=== PATIENT | female | born 1990 | race Caucasian/White ===

== ENCOUNTER 2025-02-21 20:49 | Emergency (ER) | payer OTHER ==
[2025-02-21 21:04] VITALS: TEMP 97.9
--- NOTE | 2025-02-21 21:48 | ED ---
General Adult HPI - General Chief complaint: Abdominal Pain Stated complaint: Abd pain Time Seen by Provider: 02/21/25 21:17 Source: patient Mode of arrival: ambulatory Limitations: no limitations - History of Present Illness Initial comments: Patient is previously healthy 35-year-old female presenting today for abdominal pain. The patient states that while she was trying have a bowel movement earlier she noticed an area of swelling and sharp pain in the center of her abdomen. She states she did have hard stools during this bowel movement. Denies black or bloody stools. This started about 3 hours prior to arrival. Pain is currently described as mild. She is drinking soda and eating chips. She denies nausea, vomiting, fevers or chills. Denies vaginal discharge or vaginal bleeding. States she cannot be . Does endorse dysuria. States she has had she has noticed this lump in her stomach before however it has never been painful. - Related Data Allergies Allergy/AdvReac Type Severity Reaction Status Date / Time No Known Allergies Allergy Verified 02/21/25 21:03 Review of Systems ROS Statement: Those systems with pertinent positive or pertinent negative responses have been documented in the HPI. ROS Other: All systems not noted in ROS Statement are negative. Past Medical History Past Medical History: No Reported History History of Any Multi-Drug Resistant Organisms: None Reported Additional Past Surgical History / Comment(s): Throat sugery- removal of tumor. Past Psychological History: PTSD Smoking Status: Current every day smoker, Vaper Past Alcohol Use History: None Reported Past Drug Use History: Cocaine, Heroin, Marijuana, Opiates General Exam - General Exam Comments Initial Comments: PE: CONSTITUTIONAL: [no apparent distress, well appearing] SKIN: [warm, dry, no jaundice, hives or petechiae, no areas of erythema or rash over area of discomfort] EYES:[ pupils are equally round, extraocular movements intact without nystagmus, clear conjunctiva, non-icteric sclera] HENT: [normocephalic, atraumatic, moist mucus membranes, oropharynx clear without exudates] NECK: , [Full range of motion, normal appearance] PULMONARY: [clear to auscultation without wheezes, rhonchi, or rales, normal excursion, no accessory muscle use and no stridor] CARDIOVASCULAR:[ regular rate, rhythm, normal S1 and S2. No appreciated murmurs, rubs or gallops. Strong radial pulses with intact distal perfusion. No lower extremity edema] GASTROINTESTINAL: [soft, active bowel sounds throughout, non-tender, non- distended, no palpable masses, no rebound or guarding. No hepatosplenomegaly no palpable hernias] GENITOURINARY: MUSCULOSKELETAL: [Extremities have no gross deformity, no edema, redness, or swelling. No calf swelling ] NEUROLOGIC: [_a/o x 3, GCS 15, normal mentation and speech. Moves all extremities x 4 without motor or sensory deficit] PSYCHIATRIC:[ _normal mood and affect, thought process is clear and linear] Limitations: no limitations Course Vital Signs 02/21/25 21:00 Temperature 97.9 F Pulse Rate 70 Respiratory 15 Rate Blood Pressure 130/81 O2 Sat by Pulse 98 Oximetry Medical Decision Making - Medical Decision Making Was pt. sent in by a medical professional or institution (, PA, CLIENT CARE CONSULTANT, urgent care, hospital, or fpc...) When possible be specific @ -[No] Did you speak to anyone other than the patient for history (EMS, parent, family, police, friend...)? What history was obtained from this source @ -[No] Did you review nursing and triage notes (agree or disagree)? Why? @ -[I reviewed nursing and triage notes] Were old charts reviewed (outside hosp., previous admission, EMS record, old EKG, old radiological studies, urgent care reports/EKG's, fpc records)? Report findings @ -[Medical records reviewed] Differential Diagnosis (chest pain, altered mental status, abdominal pain women, abdominal pain men, vaginal bleeding, weakness, fever, dyspnea, syncope, headache, dizziness, GI bleed, back pain, seizure, CVA, palpatations, mental health, musculoskeletal)? @Differential diagnoses broad top considerations include gastritis, umbilical hernia, strangulated hernia, cholecystitis, choledocholithiasis, UTI EKG interpreted by me (3pts min.). @ -[As above] X-rays interpreted by me (1pt min.). @ -[None done] CT interpreted by me (1pt min.). @ -[None done] U/S interpreted by me (1pt. min.). @ -[None done] What testing was considered but not performed or refused? (CT, X-rays, U/S, labs)? Why? @CT abdomen pelvis and basic labs were considered however on my assessment after having patient lie down flat her pain and reported area of swelling had resolved, suspect reducible abdominal wall hernia What meds were considered but not given or refused? Why? @ -[None] Did you discuss the management of the patient with other professionals (professionals i.e. , PA, CLIENT CARE CONSULTANT, lab, RT, psych nurse, social media analyst, attorney lawyer, teacher, chemical instrumentation officer, casework manager)? Give summary @ -[No] Was smoking cessation discussed for >3mins.? @ -[No] Was critical care preformed (if so, how long)? @ -[No] Were there social determinants of health that impacted care today? How? (Homelessness, low income, unemployed, alcoholism, drug addiction, transportation, low edu. Level, literacy, decrease access to med. care, group home, rehab)? @ -[No] Was there de-escalation of care discussed even if they declined (Discuss DNR or withdrawal of care, Hospice)? @ -[No] What co-morbidities impacted this encounter? (DM, HTN, Smoking, COPD, CAD, Cancer, CVA, ARF, Chemo, Hep., AIDS, mental health diagnosis, sleep apnea, morbid obesity)? @ -[None] Was patient admitted / discharged? Hospital course, mention meds given and route, prescriptions, significant lab abnormalities, going to OR and other pertinent info. @ -[hospital course] this is a pleasant 35-year-old female presenting today for abdominal pain and area of swelling that occurred while having a bowel movement earlier this evening. On my assessment patient is eating a bag of chips and drinking soda resting comfortably. I had the patient lie flat and on my assessment she has no palpable hernias or masses, abdomen is soft and nontender throughout. Suspect potentially reduced abdominal wall hernia, no prior surgical history though has had to prior pregnancies. Given resolution of symptoms and benign abdominal exam I do not feel labs and imaging are noticed at this time. Patient also incidentally noted dysuria stating she feels like she is UTI so urinalysis will be obtained. Patient agreeable with plan of care Undiagnosed new problem with uncertain prognosis? @ -[No] Drug Therapy requiring intensive monitoring for toxicity (Heparin, Nitro, Insulin, Cardizem)? @ -[No] Were any procedures done? @ -[No] Diagnosis/symptom? @ -[default] Acute, or Chronic, or Acute on Chronic? @ -[default] Uncomplicated (without systemic symptoms) or Complicated (systemic symptoms)? @ -[default] Side effects of treatment? @ -[No] Exacerbation, Progression, or Severe Exacerbation? @ -[No] Poses a threat to life or bodily function? How? (Chest pain, [place], [place], pneumonia, PE, COPD, DKA, ARF, appy, cholecystitis, CVA, Diverticulitis, Homicidal, Suicidal, threat to staff... and all critical care pts) @ -[No] - Lab Data Lab Results 02/21/25 02/21/25 Range/Units 21:43 21:43 Urine Color Colorless Urine Appearance Clear (Clear) Urine pH 6.0 (5.0-8.0) Ur Specific [place] 1.003 (1.001-1.035) Urine Protein Negative (Negative) Urine Glucose (UA) Negative (Negative) Urine Ketones Negative (Negative) Urine Blood Negative (Negative) Urine Nitrite Negative (Negative) Urine Bilirubin Negative (Negative) Urine Urobilinogen <2.0 (<2.0) mg/dL Ur Leukocyte Esterase Negative (Negative) Urine HCG, Qual Not Detected (Not Detectd) Disposition Clinical Impression: Abdominal pain Disposition: HOME SELF-CARE Condition: Stable Instructions (If sedation given, give patient instructions): Ventral Hernia (ED) Additional Instructions: Every disease is a spectrum and a small chance still exists that a serious condition could develop, for this reason, please monitor yourself closely for new, changing or worsening symptoms, symptoms that persist beyond 48 hours, if symptoms return and they do not improve with lying flat, relaxing, and warm compresses, should you have return of pain with skin changes/redness over the area of pain, return of pain with vomiting or no bowel movement for greater than 5 days fever, inability to tolerate/keep down fluids or your medications, inability to follow up with outpatient providers as instructed and should you experience these symptoms or should you have any further concerns for your wellbeing please return to the ED or call 911 immediately. Please continue taking your usual stool softener as needed to achieve daily soft stools the consistency of wet sand. Stop taking if you experience any of the symptoms listed above. PLEASE call your primary care physician as soon as possible to arrange / discuss plan for followup appointment. Appointment in the next 1-3 days is strongly encouraged if possible. Dr. Kincaid, General Surgeon, has also been included in your paperwork for follow up [facility] (preferably within 1 week). PLEASE let us know here before you leave if there is anything further we can do to be of any assistance. Take care and feel Better! Is patient prescribed a controlled substance at d/c from ED?: No Referrals: Darwin Diaz, [Primary Care Provider] - 1-2 days Nirmal Kincaid DO [Medical Doctor] - 1-2 days
[2025-02-21 22:01] LABS: Appearance,Urine Clear (Clear); Bilirubin,Urine Negative (Negative); Blood,Urine Negative (Negative); Color,Urine Colorless; Glucose,Urine (UA) Negative (Negative); Ketones,Urine Negative (Negative); Leukocyte Esterase,Urine Negative (Negative); Nitrite,Urine Negative (Negative); Protein,Urine Negative (Negative); Specific Gravity,Urine 1.003 (1.001-1.035); Urobilinogen,Urine <2.0 mg/dL (<2.0)
[2025-02-21 22:14] VITALS: BP 130/74; PULSE 80; RESP 18
== END 2025-02-21 22:20 | disposition home or self-care (01) ==
LOC: EC 20:49
DX: R10.9 Unspecified abdominal pain (principal); F17.290 Nicotine dependence, other tobacco product, uncomplicated
CPT/HCPCS: 81003; 81025; 99284